=== PATIENT | female | born 1945 | race Caucasian/White ===

== ENCOUNTER 2018-04-08 12:12 | Emergency (ER) | payer MEDICARE ==
[~2018-04-08 12:12] MED LIST: Iopamidol 370 76% 100 ML VIAL ONE
[2018-04-08 13:25] LABS: #Basophils 0.1 thou/uL (0.0-0.2); #Eosinphils 0.2 thou/uL (0.0-0.7); #Lymphocytes 1.5 thou/uL (1.20-3.40); #Monocytes 0.6 thou/uL (0.11-0.59); #Neutrophils 6.8 thou/uL (1.40-6.50); %Basophils 1.3 % (0.0-1.0); %Eosinophils 2.4 % (0.0-10.0); %Lymphocytes 16.7 % (21.0-51.0); %Neutrophils 73.5 % (42.0-75.0); Hemoglobin 13.7 g/dL (12.0-16.0); Mean Corpuscular HGB CONC 30.7 g/dL (32.0-36.0); Mean Corpuscular Hemoglobin 28.2 pg (27.0-31.0); Mean Corpuscular Volume 91.9 fL (78.0-98.0); Platelet Count 340 thou/uL (130-400); RBC Distribution Width 12.3 % (11.5-14.5); Red Blood Cell (RBC) Count 4.86 mill/uL (4.20-5.40); White Blood Cell (WBC) Count 9.2 thou/uL (4.8-10.8)
[2018-04-08 13:39] LABS: ALT (SGPT) 37 U/L (8-55); AST (SGOT) 24 U/L (5-34); Albumin 4.4 g/dL (3.4-4.8); Alkaline Phosphatase 70 U/L (40-150); Anion Gap 17 mmol/L (10-20); BUN (Urea Nitrogen) 15 mg/dL (9.8-20.1); Bilirubin, Total 0.6 mg/dL (0.2-1.2); CK (CPK) 126 U/L (29-168); Calc. Creatinine Clearance 0 mL/min (70-130); Carbon Dioxide 26 mmol/L (23-31); Chloride 105 mmol/L (98-107); Estimated GFR-MDRD 69; Globulin 2.9 g/dL (2.4-3.5); Glucose 109 mg/dL (83-110); Lipase 39 U/L (8-78); Potassium 3.6 mmol/L (3.5-5.1); Protein, Total 7.3 g/dL (6.0-8.3); Sodium 144 mmol/L (136-145)
[2018-04-08 13:42] LABS: CKMB 3.2 ng/mL (0-6.6); Troponin I Less than 0.010 ng/mL (< 0.028)
--- NOTE | 2018-04-08 15:03 | CT ---
CT OF THE ABDOMEN AND PELVIS WITH CONTRAST PER AORTIC DISSECITON PROTOCOL: HISTORY: Pain between the shoulder blades and thoracic back pain. TECHNIQUE: Multiple contiguous axial images were obtained in a CTA of the chest and abdomen with contrast per rtic dissection protocol. Three-D sagittal and coronal MIP reformats were performed. FINDINGS: The heart is normal in size without focal cardiac abnormality. Hilar or mediastinal lymphadenopathy is seen. A calcified granuloma is seen in the left lower lobe. No focal infiltrates are seen in the lungs. N o suspicious pulmonary nodules are identified. No pneumothorax or pleural effusion are seen. The thoracic aorta is normal in caliber without evidence of aneurysmal dilatation or dissection. The bones of the thorax and chest wall soft tissues are unremarkable. There is diffuse fatty infiltration of the liver. The gallbladder, kidneys, adrenal gland, spleen, a nd pancreas are unremarkable. No free air, free fluid, or stranding changes are seen in the abdomen. There are a few scattered diverticula in the colon. The small bowel is unremarkable. No abdominal a denopathy is seen. There is a small amount of atherosclerotic disease in the infrarenal aorta. There is no evidence of aneurysmal dilatation or dissection of the aorta. Degenerative changes are seen in the lumbar spine. There is a small fat-containing umbilical hernia. IMPRESSION: 1. No evidence of dissection or aneurysmal dilatation of the aorta. 2. Fatty liver. 3. Diverticulosis. POS: [facility]AN
== END 2018-04-08 15:54 | disposition short-term general hospital (02) ==
LOC: NAV ERS 12:12
DX: M54.6 Pain in thoracic spine (principal); R61 Generalized hyperhidrosis; R06.00 Dyspnea, unspecified; E11.9 Type 2 diabetes mellitus without complications; I10 Essential (primary) hypertension; Z87.891 Personal history of nicotine dependence; Z79.899 Other long term (current) drug therapy; Z79.82 Long term (current) use of aspirin; Z79.84 Long term (current) use of oral hypoglycemic drugs
CPT/HCPCS: 71275; 80053; 82553; 83690; 84484; 85025; 93005

== ENCOUNTER 2019-12-17 23:45 | Emergency (ER) | payer MEDICARE ==
[2019-12-18] MEDS ORDERED: Loratadine 10 MG TAB ONE (00:03)
== END 2019-12-18 00:11 | disposition home or self-care (01) ==
LOC: NAV ERS 23:45
DX: L50.0 Allergic urticaria (principal); E03.9 Hypothyroidism, unspecified; E11.9 Type 2 diabetes mellitus without complications; I10 Essential (primary) hypertension
CPT/HCPCS: 99282

== ENCOUNTER 2021-06-11 13:42 | Emergency (ER) | payer MEDICARE ==
[2021-06-11] MEDS ORDERED: Acetaminophen/Codeine 30-300mg Tablet ONE (16:24)
== END 2021-06-11 16:41 | disposition home or self-care (01) ==
LOC: NAV ERS 13:42
DX: S32.019A Unspecified fracture of first lumbar vertebra, initial encounter for closed fracture (principal); E11.9 Type 2 diabetes mellitus without complications; E03.9 Hypothyroidism, unspecified; I10 Essential (primary) hypertension; Z85.3 Personal history of malignant neoplasm of breast; Z79.84 Long term (current) use of oral hypoglycemic drugs; Z79.01 Long term (current) use of anticoagulants; Z79.82 Long term (current) use of aspirin; Z79.899 Other long term (current) drug therapy; W18.30XA Fall on same level, unspecified, initial encounter
CPT/HCPCS: 36416; 72100; 72170

== ENCOUNTER 2021-06-17 11:00 | Inpatient (IN) | payer MEDICARE ==
[2021-06-17] MEDS ORDERED: Acetaminophen 650 MG Suppository PR PRN (12:26)
[2021-06-17] MEDS ORDERED: Ondansetron PF 4 MG/2 ML Vial IVP PRN (12:26)
[2021-06-17] MEDS ORDERED: Acetaminophen 325 MG TAB PO PRN (12:26)
[2021-06-17] MEDS ORDERED: HYDROcodone/Acetaminophen 5/325 mg Tablet PO PRN (12:26)
[2021-06-17] MEDS ORDERED: Loperamide HCl 2 MG CAP PO PRN ×2 (12:26)
[2021-06-17] MEDS ORDERED: Bisacodyl 5 MG TAB PO PRN (12:26)
[2021-06-17] MEDS ORDERED: Benzonatate 100 MG CAP PO PRN (12:26)
[2021-06-17] MEDS ORDERED: Artificial Tear Sol 15 ML BOT EA EYE PRN (12:26)
[2021-06-17] MEDS ORDERED: cloNIDine 0.1 MG TAB PO PRN (12:26)
[2021-06-17] MEDS ORDERED: Eucerin (Mineral Oil/Petrolatum,White) 30 gm Jar TOP PRN (12:26)
[2021-06-17] MEDS ORDERED: Senokot S 8.6-50 MG TAB PO PRN (12:26)
[2021-06-17] MEDS ORDERED: Calcium Carbonate 500 MG ChewTAB PO PRN (12:26)
[2021-06-17] MEDS ORDERED: Sodium Chloride 0.65% Nasal 44 ML BOT EA NARE PRN (12:26)
[2021-06-17] MEDS ORDERED: Cepastat Lozenges 1 LOZ PO PRN (12:26)
[2021-06-17 13:59] VITALS: BMI 28.9
[2021-06-17] MEDS: HYDROcodone/Acetaminophen 5/325 mg Tablet PO PRN ×2 (16:10→23:52)
[2021-06-17] MEDS ORDERED: Dextrose 50% Abboject 50 ML SYRINGE SLOW IVP PRN (16:38)
[2021-06-17] MEDS ORDERED: Insulin Regular 300 UNITS/3 ML VIAL SC PRN (16:38)
[2021-06-17 17:18] LABS: SARS-CoV-2 NAA Rapid Test Not Detected (NotDetected)
[2021-06-17] MEDS: Famotidine 20 MG TAB PO SCH (21:33)
[2021-06-17] MEDS: metFORMIN 500 MG TAB PO SCH (21:34)
[2021-06-18] MEDS: Levothyroxine Sodium 125 MCG TAB PO SCH (05:23)
[2021-06-18 06:57] LABS: #Basophils 0.1 thou/uL (0.0-0.2); #Eosinphils 0.2 thou/uL (0.0-0.7); #Lymphocytes 1.2 thou/uL (1.20-3.40); #Monocytes 0.7 thou/uL (0.11-0.59); #Neutrophils 6.2 thou/uL (1.40-6.50); %Basophils 1.6 % (0.0-1.0); %Eosinophils 2.2 % (0.0-10.0); %Lymphocytes 14.1 % (21.0-51.0); %Monocytes 8.1 % (0.0-10.0); Hemoglobin 12.8 g/dL (12.0-16.0); Mean Corpuscular HGB CONC 31.9 g/dL (32.0-36.0); Mean Corpuscular Hemoglobin 30.1 pg (27.0-31.0); Mean Corpuscular Volume 94.3 fL (78.0-98.0); Mean Platelet Volume 6.5 fL (7.4-10.4); Platelet Count 307 thou/uL (130-400); RBC Distribution Width 12.1 % (11.5-14.5); Red Blood Cell (RBC) Count 4.25 mill/uL (4.20-5.40); White Blood Cell (WBC) Count 8.4 thou/uL (4.8-10.8)
[2021-06-18 07:09] LABS: Anion Gap 14 mmol/L (10-20); BUN (Urea Nitrogen) 13 mg/dL (9.8-20.1); Calc. Creatinine Clearance 95 mL/min (70-130); Calcium 9.3 mg/dL (7.8-10.44); Carbon Dioxide 29 mmol/L (23-31); Chloride 94 mmol/L (98-107); Glucose 136 mg/dL (83-110); Sodium 134 mmol/L (136-145)
[2021-06-18 07:26] LABS: Potassium 2.7 mmol/L (3.5-5.1)
[2021-06-18] MEDS ORDERED: Potassium Chloride 20 MEQ TAB PO SCH ×2 (08:30→11:00)
[2021-06-18 08:39] LABS: Magnesium 1.6 mg/dL (1.6-2.6)
[2021-06-18] MEDS: Lisinopril 20 MG TAB PO SCH (08:46)
[2021-06-18] MEDS: Anastrozole 1 MG TAB PO SCH (08:46)
[2021-06-18] MEDS: Hydrochlorothiazide 25 MG TAB PO SCH (08:46)
[2021-06-18] MEDS: Famotidine 20 MG TAB PO SCH ×2 (08:46→21:26)
[2021-06-18] MEDS: metFORMIN 500 MG TAB PO SCH ×2 (08:46→21:26)
[2021-06-18] MEDS: HYDROcodone/Acetaminophen 5/325 mg Tablet PO PRN ×2 (08:51→15:28)
[2021-06-18] MEDS ORDERED: Escitalopram Oxalate 10 mg Tablet PO SCH (09:00)
[2021-06-18] MEDS: Ondansetron ODT 4 MG TAB PO PRN ×2 (09:01→15:31)
[2021-06-18 15:19] LABS: Anion Gap 16 mmol/L (10-20)
[2021-06-18 15:43] LABS: BUN (Urea Nitrogen) 16 mg/dL (9.8-20.1); Calc. Creatinine Clearance 81 mL/min (70-130); Calcium 9.5 mg/dL (7.8-10.44); Carbon Dioxide 29 mmol/L (23-31); Chloride 95 mmol/L (98-107); Glucose 105 mg/dL (83-110); Potassium 4.2 mmol/L (3.5-5.1); Sodium 136 mmol/L (136-145)
[2021-06-18] MEDS ORDERED: Acetaminophen/Codeine 30-300mg Tablet PO PRN (18:28)
[2021-06-18] MEDS: Acetaminophen/Codeine 30-300mg Tablet PO PRN (21:26)
[2021-06-19] MEDS: Levothyroxine Sodium 125 MCG TAB PO SCH (05:16)
[2021-06-19] MEDS: Anastrozole 1 MG TAB PO SCH (08:11)
[2021-06-19] MEDS: Lisinopril 20 MG TAB PO SCH (08:11)
[2021-06-19] MEDS: Famotidine 20 MG TAB PO SCH ×2 (08:12→21:04)
[2021-06-19] MEDS: Hydrochlorothiazide 25 MG TAB PO SCH (08:12)
[2021-06-19] MEDS: metFORMIN 500 MG TAB PO SCH ×2 (08:12→21:04)
[2021-06-19 20:33] VITALS: BP 124/74; TEMP 98.7
[2021-06-19] MEDS: Acetaminophen/Codeine 30-300mg Tablet PO PRN (21:04)
== END 2021-06-19 22:33 | disposition critical access hospital (66) | DRG 552 ==
LOC: NAV ACUTE 12:56 → UNDOADMIN 12:56 → NAV ACUTE 06-19 10:16
PROVIDERS: ADMIT Family Medicine; ATTEND Family Medicine
DX: S32.019A Unspecified fracture of first lumbar vertebra, initial encounter for closed fracture (principal); E11.9 Type 2 diabetes mellitus without complications; I10 Essential (primary) hypertension; E03.9 Hypothyroidism, unspecified; M85.80 Other specified disorders of bone density and structure, unspecified site; F32.9 Major depressive disorder, single episode, unspecified; F41.9 Anxiety disorder, unspecified; C50.919 Malignant neoplasm of unspecified site of unspecified female breast; Z20.822 Contact with and (suspected) exposure to COVID-19; W19.XXXA Unspecified fall, initial encounter; Y93.H2 Activity, gardening and landscaping; Y92.007 Garden or yard of unspecified non-institutional (private) residence as the place of occurrence of the external cause; Z98.890 Other specified postprocedural states; Z79.84 Long term (current) use of oral hypoglycemic drugs; Z79.899 Other long term (current) drug therapy
CPT/HCPCS: 36416; 72131; 80048; 83735; 85025; Q0162; U0002

== ENCOUNTER 2021-06-19 22:29 | Inpatient (IN) | payer MEDICARE ==
[2021-06-19] MEDS ORDERED: Eucerin (Mineral Oil/Petrolatum,White) 30 gm Jar TOP PRN (23:19)
[2021-06-19] MEDS ORDERED: Bisacodyl 10 MG SUPP PR PRN (23:19)
[2021-06-19] MEDS ORDERED: Loperamide HCl 2 MG CAP PO PRN ×2 (23:19)
[2021-06-19] MEDS ORDERED: Senokot S 8.6-50 MG TAB PO PRN (23:19)
[2021-06-19] MEDS ORDERED: Calcium Carbonate 500 MG ChewTAB PO PRN (23:19)
[2021-06-19] MEDS ORDERED: Cepastat Lozenges 1 LOZ PO PRN (23:19)
[2021-06-19] MEDS ORDERED: Dextrose 50% Abboject 50 ML SYRINGE SLOW IVP PRN (23:19)
[2021-06-19] MEDS ORDERED: diphenhydrAMINE 25 MG CAP PO PRN (23:19)
[2021-06-19] MEDS ORDERED: Bisacodyl 5 MG TAB PO PRN (23:19)
[2021-06-19] MEDS ORDERED: Artificial Tear Sol 15 ML BOT EA EYE PRN (23:19)
[2021-06-19] MEDS ORDERED: Acetaminophen 325 MG TAB PO PRN (23:19)
[2021-06-19] MEDS ORDERED: Benzonatate 100 MG CAP PO PRN (23:19)
[2021-06-19] MEDS ORDERED: Guaifenesin DM 100-10/5 ML UDCUP PO PRN (23:19)
[2021-06-19] MEDS ORDERED: Acetaminophen 650 MG Suppository PR PRN (23:19)
[2021-06-19] MEDS ORDERED: HumaLOG 300 UNITS/3 ML VIAL SC PRN (23:19)
[2021-06-20] MEDS: Levothyroxine Sodium 125 MCG TAB PO SCH (05:11)
[2021-06-20 05:30] LABS: #Basophils 0.1 thou/uL (0.0-0.2); #Eosinphils 0.2 thou/uL (0.0-0.7); #Lymphocytes 1.6 thou/uL (1.20-3.40); #Monocytes 0.7 thou/uL (0.11-0.59); %Basophils 1.7 % (0.0-1.0); %Eosinophils 2.8 % (0.0-10.0); %Lymphocytes 18.3 % (21.0-51.0); %Monocytes 8.4 % (0.0-10.0); %Neutrophils 68.8 % (42.0-75.0); Mean Corpuscular HGB CONC 31.1 g/dL (32.0-36.0); Mean Corpuscular Hemoglobin 29.7 pg (27.0-31.0); Mean Corpuscular Volume 95.4 fL (78.0-98.0); Mean Platelet Volume 6.5 fL (7.4-10.4); Platelet Count 335 thou/uL (130-400); RBC Distribution Width 12.2 % (11.5-14.5); Red Blood Cell (RBC) Count 4.37 mill/uL (4.20-5.40); White Blood Cell (WBC) Count 8.7 thou/uL (4.8-10.8)
[2021-06-20 05:42] LABS: Anion Gap 14 mmol/L (10-20); BUN (Urea Nitrogen) 17 mg/dL (9.8-20.1); Calc. Creatinine Clearance 92 mL/min (70-130); Calcium 9.5 mg/dL (7.8-10.44); Carbon Dioxide 30 mmol/L (23-31); Chloride 98 mmol/L (98-107); Glucose 121 mg/dL (83-110); Potassium 3.6 mmol/L (3.5-5.1); Sodium 138 mmol/L (136-145)
[2021-06-20] MEDS ORDERED: Acetaminophen/Codeine 30-300mg Tablet PO PRN (07:35)
[2021-06-20] MEDS: Anastrozole 1 MG TAB PO SCH (08:40)
[2021-06-20] MEDS: Lisinopril 20 MG TAB PO SCH (08:41)
[2021-06-20] MEDS: Hydrochlorothiazide 25 MG TAB PO SCH (08:41)
[2021-06-20] MEDS: Escitalopram Oxalate 10 mg Tablet PO SCH (08:41)
[2021-06-20] MEDS: Famotidine 20 MG TAB PO SCH ×2 (08:42→21:28)
[2021-06-20] MEDS: metFORMIN XR 500 MG TAB PO SCH ×2 (08:42→21:28)
[2021-06-20] MEDS: Acetaminophen/Codeine 30-300mg Tablet PO PRN (15:12)
[2021-06-20] MEDS ORDERED: Simethicone Chewable 80 MG TAB PO PRN (16:05)
[2021-06-21] MEDS: Acetaminophen/Codeine 30-300mg Tablet PO PRN ×3 (01:17→22:23)
[2021-06-21] MEDS: Levothyroxine Sodium 125 MCG TAB PO SCH (06:01)
[2021-06-21 06:10] VITALS: BMI 28.5
[2021-06-21] MEDS: metFORMIN XR 500 MG TAB PO SCH ×2 (08:44→21:09)
[2021-06-21] MEDS: Lisinopril 20 MG TAB PO SCH (08:44)
[2021-06-21] MEDS: Hydrochlorothiazide 25 MG TAB PO SCH (08:44)
[2021-06-21] MEDS: Anastrozole 1 MG TAB PO SCH (08:44)
[2021-06-21] MEDS: Famotidine 20 MG TAB PO SCH ×2 (08:44→21:09)
[2021-06-22] MEDS: Levothyroxine Sodium 125 MCG TAB PO SCH (05:15)
[2021-06-22] MEDS: Famotidine 20 MG TAB PO SCH ×2 (08:53→21:52)
[2021-06-22] MEDS: Anastrozole 1 MG TAB PO SCH (08:53)
[2021-06-22] MEDS: Hydrochlorothiazide 25 MG TAB PO SCH (08:53)
[2021-06-22] MEDS: Escitalopram Oxalate 10 mg Tablet PO SCH (08:53)
[2021-06-22] MEDS: Lisinopril 20 MG TAB PO SCH (08:54)
[2021-06-22] MEDS: metFORMIN XR 500 MG TAB PO SCH ×2 (08:54→21:52)
[2021-06-22] MEDS: Acetaminophen/Codeine 30-300mg Tablet PO PRN ×2 (12:04→21:59)
[2021-06-23] MEDS: Levothyroxine Sodium 125 MCG TAB PO SCH (06:37)
[2021-06-23] MEDS ORDERED: Famotidine 20 MG TAB ONE (08:05)
[2021-06-23] MEDS: Anastrozole 1 MG TAB PO SCH (09:00)
[2021-06-23] MEDS: Famotidine 20 MG TAB PO SCH ×2 (09:00→20:26)
[2021-06-23] MEDS: Hydrochlorothiazide 25 MG TAB PO SCH (09:00)
[2021-06-23] MEDS: Lisinopril 20 MG TAB PO SCH (09:00)
[2021-06-23] MEDS: metFORMIN XR 500 MG TAB PO SCH ×2 (09:01→20:26)
[2021-06-23] MEDS: Acetaminophen/Codeine 30-300mg Tablet PO PRN ×2 (09:01→20:27)
[2021-06-24] MEDS: Levothyroxine Sodium 125 MCG TAB PO SCH (05:19)
[2021-06-24] MEDS: Acetaminophen/Codeine 30-300mg Tablet PO PRN ×2 (08:23→20:20)
[2021-06-24] MEDS: Famotidine 20 MG TAB PO SCH ×2 (08:24→20:20)
[2021-06-24] MEDS: Lisinopril 20 MG TAB PO SCH (08:24)
[2021-06-24] MEDS: Escitalopram Oxalate 10 mg Tablet PO SCH (08:25)
[2021-06-24] MEDS: Anastrozole 1 MG TAB PO SCH (08:25)
[2021-06-24] MEDS: Hydrochlorothiazide 25 MG TAB PO SCH (08:25)
[2021-06-24] MEDS: metFORMIN XR 500 MG TAB PO SCH ×2 (08:25→20:20)
[2021-06-25] MEDS: Levothyroxine Sodium 125 MCG TAB PO SCH (05:16)
[2021-06-25] MEDS: metFORMIN XR 500 MG TAB PO SCH ×2 (08:20→20:45)
[2021-06-25] MEDS: Lisinopril 20 MG TAB PO SCH (08:20)
[2021-06-25] MEDS: Famotidine 20 MG TAB PO SCH ×2 (08:20→20:46)
[2021-06-25] MEDS: Anastrozole 1 MG TAB PO SCH (08:20)
[2021-06-25] MEDS: Hydrochlorothiazide 25 MG TAB PO SCH (08:24)
[2021-06-25] MEDS: Acetaminophen/Codeine 30-300mg Tablet PO PRN (13:51)
[2021-06-26] MEDS: Acetaminophen/Codeine 30-300mg Tablet PO PRN ×2 (04:26→13:02)
[2021-06-26] MEDS: Levothyroxine Sodium 125 MCG TAB PO SCH (04:27)
[2021-06-26] MEDS: Hydrochlorothiazide 25 MG TAB PO SCH (08:58)
[2021-06-26] MEDS: Anastrozole 1 MG TAB PO SCH (08:58)
[2021-06-26] MEDS: metFORMIN XR 500 MG TAB PO SCH (08:58)
[2021-06-26] MEDS: Lisinopril 20 MG TAB PO SCH (08:58)
[2021-06-26] MEDS: Famotidine 20 MG TAB PO SCH (08:58)
[2021-06-26] MEDS: Escitalopram Oxalate 10 mg Tablet PO SCH (08:59)
[2021-06-26 09:02] VITALS: BP 116/70
[2021-06-26 11:12] VITALS: TEMP 98.2
[2021-06-26 14:43] LABS: SARS-CoV-2 PCR by NAA Not Detected (NotDetected)
== END 2021-06-26 13:02 | disposition home health service (06) | DRG 552 ==
LOC: NAV ACUTE 22:29
PROVIDERS: ADMIT Family Medicine; ATTEND Family Medicine
DX: S32.019A Unspecified fracture of first lumbar vertebra, initial encounter for closed fracture (principal); E11.9 Type 2 diabetes mellitus without complications; I10 Essential (primary) hypertension; E03.9 Hypothyroidism, unspecified; C50.911 Malignant neoplasm of unspecified site of right female breast; X58.XXXA Exposure to other specified factors, initial encounter; F32.9 Major depressive disorder, single episode, unspecified; R53.1 Weakness; F41.9 Anxiety disorder, unspecified; Z20.822 Contact with and (suspected) exposure to COVID-19; Z98.890 Other specified postprocedural states; Z79.84 Long term (current) use of oral hypoglycemic drugs; Z79.899 Other long term (current) drug therapy
CPT/HCPCS: 36415; 36416; 80048; 85025; U0003; U0005

== ENCOUNTER 2022-05-10 20:50 | Emergency (ER) | payer MEDICARE | END 2022-05-10 22:08 | disposition home or self-care (01) | LOC: NAV ERS 20:50 | DX: I10 Essential (primary) hypertension (principal); F41.9 Anxiety disorder, unspecified; E11.9 Type 2 diabetes mellitus without complications; E03.9 Hypothyroidism, unspecified; Z79.84 Long term (current) use of oral hypoglycemic drugs; Z79.899 Other long term (current) drug therapy | CPT/HCPCS: 93005 ==

== ENCOUNTER 2025-10-13 15:10 | Emergency (ER) | payer MEDICARE ==
[2025-10-13] MEDS ORDERED: predniSONE 20 MG TAB ONE (16:23)
== END 2025-10-13 16:40 | disposition home or self-care (01) ==
LOC: NAV ERS 15:10
DX: T78.3XXA Angioneurotic edema, initial encounter (principal); E11.9 Type 2 diabetes mellitus without complications; I10 Essential (primary) hypertension; E03.9 Hypothyroidism, unspecified; Z79.82 Long term (current) use of aspirin; Z79.84 Long term (current) use of oral hypoglycemic drugs; Z79.899 Other long term (current) drug therapy
CPT/HCPCS: 99283; J7512